=== PATIENT | female | born 1980 | race Two or more races ===

== ENCOUNTER 2022-07-11 14:24 | Outpatient (CLI) | payer OTHER | END 2022-07-11 14:40 | disposition home or self-care (01) | LOC: TOM 14:24 | PROVIDERS: ATTEND Surgery | DX: R10.0 Acute abdomen (principal); R10.13 Epigastric pain; R07.9 Chest pain, unspecified; C50.412 Malignant neoplasm of upper-outer quadrant of left female breast ==

== ENCOUNTER 2022-07-12 08:39 | Outpatient (CLI) | payer OTHER | END 2022-07-12 08:40 | disposition home or self-care (01) | LOC: NUCLEAR 08:39 | PROVIDERS: ATTEND Surgery | DX: M25.50 Pain in unspecified joint (principal); C50.412 Malignant neoplasm of upper-outer quadrant of left female breast | CPT/HCPCS: 78306; 78830; A9503 ==

== ENCOUNTER 2022-08-09 06:00 | Day surgery (SDC) | payer OTHER ==
[~2022-08-09] VITALS: Ht 165.1 cm; Wt 61.2 kg
== END 2022-08-09 20:00 | disposition home or self-care (01) ==
LOC: CIR.AMB 06:00
PROVIDERS: ATTEND Surgery
DX: C50.512 Malignant neoplasm of lower-outer quadrant of left female breast (principal); Z88.6 Allergy status to analgesic agent; Z86.16 Personal history of COVID-19; F12.90 Cannabis use, unspecified, uncomplicated; N62 Hypertrophy of breast; Z90.12 Acquired absence of left breast and nipple; R59.0 Localized enlarged lymph nodes
CPT/HCPCS: 19303; 38525; 38792; 19357; 14301; 14302; A9541

== ENCOUNTER 2022-11-15 05:30 | Day surgery (SDC) | payer OTHER ==
[~2022-11-15] VITALS: Ht 165.1 cm; Wt 61.2 kg
[~2022-11-15 05:30] MED LIST: TAMOXIFEN CITRA10 MG PO
== END 2022-11-15 11:50 | disposition home or self-care (01) ==
LOC: CIR.AMB 05:30
PROVIDERS: ATTEND Plastic Surgery
DX: N65.1 Disproportion of reconstructed breast (principal); Z90.12 Acquired absence of left breast and nipple; N64.89 Other specified disorders of breast; Z88.6 Allergy status to analgesic agent; Z20.822 Contact with and (suspected) exposure to COVID-19

== ENCOUNTER 2023-06-03 13:26 | Outpatient (CLI) | payer OTHER | END 2023-06-03 13:47 | disposition home or self-care (01) | LOC: RAD 13:26 | PROVIDERS: ATTEND Surgery | DX: I10 Essential (primary) hypertension (principal); Z88.6 Allergy status to analgesic agent ==

== ENCOUNTER 2023-06-06 06:21 | Day surgery (SDC) | payer OTHER | END 2023-06-06 14:30 | disposition home or self-care (01) | LOC: CIR.AMB 06:21 | PROVIDERS: ATTEND Plastic Surgery | DX: C50.512 Malignant neoplasm of lower-outer quadrant of left female breast (principal); N60.81 Other benign mammary dysplasias of right breast; Z90.11 Acquired absence of right breast and nipple; Z20.822 Contact with and (suspected) exposure to COVID-19; Z88.6 Allergy status to analgesic agent ==